=== PATIENT | female | born 1985 | race Caucasian/White ===

== ENCOUNTER 2016-11-01 07:13 | Emergency (ER) | payer OTHER ==
[2016-11-01 07:42] VITALS: BP 117/67
--- NOTE | 2016-11-01 07:50 | UC ---
Respiratory Complaint HPI - HPI Summary HPI Summary: cough and congestion for about two weeks. she has not had a fever. the cough is productive. no sob or wheezing. she has asthma and is a smoker and at times will need prednisone in the past. - History of Current Complaint Chief Complaint: UCRespiratory Stated Complaint: COUGH CONGESTION EARS Time Seen by Provider: 11/01/16 07:45 Hx Obtained From: Patient Hx Last Menstrual Period: 10/14/16 ?: No Onset/Duration: Gradual Onset Timing: Constant Severity Initially: Mild Severity Currently: Moderate Character: Cough: Productive Aggravating Factors: Deep Breaths Alleviating Factors: Nothing Associated Signs And Symptoms: Positive: URI, Nasal Congestion, Hoarseness. Negative: Dyspnea, Fever, Chills, Pleuritic Chest Pain, Wheezing, Hemoptysis, Dizziness, Calf Pain, Calf Swelling, Edema, Sinus Discomfort - Risk Factors Cardiac Risk Factors: Negative Pseudomonas Risk Factors: Negative Tuberculosis Risk Factors: Negative - Allergies/Home Medications Allergies/Adverse Reactions: Allergies Allergy/AdvReac Type Severity Reaction Status Date / Time Hydrocodone [From Vicodin] Allergy Hives, Verified 11/01/16 07:34 Vomiting Penicillins Allergy Hives, Verified 11/01/16 07:34 Vomiting PMH/Surg Hx/FS Hx/Imm Hx Respiratory History Of: Reports: Asthma - Surgical History Surgical History: Yes Surgery Procedure, Year, and Place: Tubal Ligation; C-Sections, 2005 2007 2015; Multiple Ear Tubes (Ying); T&A, 1991 - Family History Known Family History: Positive: None Negative: Diabetes - Social History Lives: With Family Alcohol Use: Weekly Substance Use Type: None Smoking Status (MU): Heavy Every Day Tobacco Smoker Type: Cigarettes Amount Used/How Often: 1/2 PPD Length of Time of Smoking/Using Tobacco: since age 20 Have You Smoked in the Last Year: Yes - Immunization History Most Recent Influenza Vaccination: June 2016 Review of Systems All Other Systems Reviewed And Are Negative: Yes Physical Exam Triage Information Reviewed: Yes Appearance: Well-Appearing, No Pain Distress, Obese Vital Signs: Initial Vital Signs Temp 98 F 11/01/16 07:39 Pulse 72 11/01/16 07:39 Resp 16 11/01/16 07:39 BP 117/67 11/01/16 07:39 Pulse Ox 98 11/01/16 07:39 Vital Signs Reviewed: Yes Eye Exam: Normal Eyes: Positive: Conjunctiva Clear. Negative: Conjunctiva Inflamed ENT Exam: Normal ENT: Positive: Normal ENT inspection, Hearing grossly normal, Pharynx normal, Nasal congestion. Negative: Pharyngeal erythema, Nasal drainage, TMs normal, TM bulging, TM dull, TM red, Tonsillar swelling, Tonsillar exudate, Trismus, Muffled/hoarse voice Neck exam: Normal Neck: Positive: Supple, Nontender, No Lymphadenopathy. Negative: Nuchal Rigidity, Tenderness @, Enlarged Nodes @ Respiratory Exam: Normal Respiratory: Positive: Lungs clear, Normal breath sounds. Negative: No respiratory distress, No accessory muscle use, Respiratory distress, Decreased breath sounds, Accessory muscle use, Crackles, Rhonchi, Stridor, Wheezing Cardiovascular: Positive: RRR, No Murmur, Pulses Normal Abdomen Description: Positive: Nontender, No Organomegaly, Soft Musculoskeletal Exam: Normal Musculoskeletal: Positive: Strength Intact, ROM Intact, No Edema Neurological Exam: Normal Neurological: Positive: Alert, Muscle Tone Normal. Negative: Fatigued, Lethargic, Unresponsive Psychological Exam: Normal Psychological: Positive: Normal Response To Family Skin Exam: Normal Skin: Negative: rashes UC Diagnostic Evaluation - Laboratory O2 Sat by Pulse Oximetry: 98 Respiratory Course/Dx - Course Course Of Treatment: Asthma and smoker with hx of bronchitis needing prednisone in the past. We will start z pack and tessalon perles and have prednisone on hand should she get tight and wheezing. she has bronchodilators on hand if needed. - Differential Dx/Diagnosis Differential Diagnosis/HQI/PQRI: Airway Obstruction, Foreign Body, Aspiration, Asthma, Bronchitis, Pulmonary Edema, Influenza, Lower Resp Infection Provider Diagnoses: acute bronchitis. Discharge - Discharge Plan Condition: Good Disposition: HOME Prescriptions: Azithromycin TAB* [Zithromax TAB (Z-DAISY) 250 mg #6 tabs] 2 tab PO .TODAY, THEN 1 DAILY #1 daisy Azithromyxin DAISY (NF) [Z-Daisy (Zithromax) 250 mg tabs #6] 2 tab PO .TODAY, THEN 1 DAILY #6 tab Methylprednisolone [Medrol Dosepak 4 MG*] 4 mg PO .SEE DAISY INSTRUCTION #21 tab Patient Education Materials: Acute Bronchitis (ED) Referrals: ADAM Freitas [Primary Care Provider] -
== END 2016-11-01 08:17 | disposition home or self-care (01) ==
LOC: UCCORT 07:13
DX: J20.9 Acute bronchitis, unspecified (principal); Z88.5 Allergy status to narcotic agent; Z88.0 Allergy status to penicillin; J45.909 Unspecified asthma, uncomplicated; F17.210 Nicotine dependence, cigarettes, uncomplicated; E66.9 Obesity, unspecified
CPT/HCPCS: 99212; G0463

== ENCOUNTER 2017-09-13 07:04 | Emergency (ER) | payer OTHER ==
[2017-09-13 07:32] VITALS: BP 113/69
--- NOTE | 2017-09-13 07:37 | UC ---
Complaint Female HPI - HPI Summary HPI Summary: urinary frequency x 3 days + dysuria , lower back pain , no fever, no chills, no flank pain - History Of Current Complaint Chief Complaint: UCGU Stated Complaint: URINARY COMPLAINT Time Seen by Provider: 09/13/17 07:21 Hx Obtained From: Patient Hx Last Menstrual Period: 09/02/17 Onset/Duration: Gradual Onset, Lasting Days - 3, Still Present Timing: Constant Severity Initially: Moderate Severity Currently: Moderate Pain Intensity: 3 Character: Burning Aggravating Factor(s): Urination Alleviating Factor(s): Nothing Associated Signs And Symptoms: Negative: Fever, Back Pain, Vaginal Bleeding/ Discharge, Vaginal Discharge, Nausea, Vomiting(# Of Episodes =), Genital Swelling, Genital Blisters, Retained Foregin Body (Specify) - Allergies/Home Medications Allergies/Adverse Reactions: Allergies Allergy/AdvReac Type Severity Reaction Status Date / Time acetaminophen [From Vicodin] Allergy Hives Verified 09/13/17 07:33 hydrocodone [From Vicodin] Allergy Hives Verified 09/13/17 07:33 Penicillins Allergy Hives Verified 09/13/17 07:33 Home Medications: Home Medications Bupropion XL* [Wellbutrin XL *] 150 mg PO DAILY 09/13/17 [History Confirmed ] Omeprazole CAP* [Prilosec CAP* 20 MG] 20 mg PO DAILY 09/13/17 [History Confirmed 09/13/17] PMH/Surg Hx/FS Hx/Imm Hx Respiratory History: Asthma Psychological History: Anxiety - Surgical History Surgical History: Yes Surgery Procedure, Year, and Place: Tubal Ligation; C-Sections, 2005 2007 2015; Multiple Ear Tubes (Ying); T&A, 1991 - Family History Known Family History: Positive: None Negative: Diabetes - Social History Alcohol Use: Occasionally Substance Use Type: None Smoking Status (MU): Heavy Every Day Tobacco Smoker Type: Cigarettes Amount Used/How Often: 1/2 PPD Length of Time of Smoking/Using Tobacco: since age 20 Have You Smoked in the Last Year: Yes - Immunization History Most Recent Influenza Vaccination: June 2016 Review of Systems Constitutional: Negative Skin: Negative Eyes: Negative ENT: Negative Respiratory: Negative Cardiovascular: Negative Gastrointestinal: Negative Genitourinary: Dysuria, Frequency Is Patient Immunocompromised?: No All Other Systems Reviewed And Are Negative: Yes Physical Exam Triage Information Reviewed: Yes Appearance: Well-Appearing, No Pain Distress, Well-Nourished Vital Signs: Initial Vital Signs Temp 98.4 F 09/13/17 07:25 Pulse 64 09/13/17 07:25 Resp 20 09/13/17 07:25 BP 113/69 09/13/17 07:25 Pulse Ox 96 09/13/17 07:25 Vital Signs Reviewed: Yes Eyes: Positive: Conjunctiva Clear ENT: Positive: Normal ENT inspection, Hearing grossly normal, Pharynx normal Neck: Positive: Supple, Nontender, No Lymphadenopathy Respiratory: Positive: Chest non-tender, Lungs clear, Normal breath sounds Cardiovascular: Positive: RRR, No Murmur, Pulses Normal Abdominal Exam: Normal Abdomen Description: Positive: Nontender, Soft. Negative: CVA Tenderness (R), CVA Tenderness (L), Distended, Guarding Bowel Sounds: Positive: Present Skin Exam: Normal Complaint Female Dx - Differential Dx/Diagnosis Provider Diagnoses: UTI Discharge - Discharge Plan Condition: Stable Disposition: HOME Prescriptions: Sulfamethox/Trimethoprim DS* [Bactrim DS 800/160 TAB*] 1 tab PO BID #14 tab Patient Education Materials: Urinary Tract Infection in Women (DC) Referrals: Emilee Mackey MD [Primary Care Provider] - If Needed
== END 2017-09-13 07:54 | disposition home or self-care (01) ==
LOC: UCCORT 07:04
DX: N39.0 Urinary tract infection, site not specified (principal)
CPT/HCPCS: 81003; 87086; 99212; G0463

== ENCOUNTER 2017-12-20 17:46 | Emergency (ER) | payer OTHER ==
[2017-12-20 18:29] VITALS: BP 119/82
[2017-12-20] MEDS ORDERED: Albuterol/Ipratropium NEB.SOL* Albuterol 2.5 MG/Ipratropium 0.5 MG 3 ML INH ONE (19:27)
--- NOTE | 2017-12-20 19:27 | UC ---
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 she has had worsening sinus pain, sore throat and bilateral ear pain for the past several days - History of Current Complaint Chief Complaint: UCRespiratory Stated Complaint: EARS/ST/SINUS Time Seen by Provider: 12/20/17 19:17 Hx Obtained From: Patient Hx Last Menstrual Period: 11/27/17 ?: No Onset/Duration: Gradual Onset, Lasting Weeks, Worse Since - past 3 days Pain Intensity: 6 Pain Scale Used: 0-10 Numeric Cough: Nonproductive Associated Signs & Symptoms: Positive: Sinus Discomfort, Nasal Discharge - Allergies/Home Medications Allergies/Adverse Reactions: Allergies Allergy/AdvReac Type Severity Reaction Status Date / Time acetaminophen [From Vicodin] Allergy Hives Verified 12/20/17 18:30 hydrocodone [From Vicodin] Allergy Hives Verified 12/20/17 18:30 Penicillins Allergy Hives Verified 12/20/17 18:30 Home Medications: Home Medications Albuterol HFA INHALER* [Ventolin HFA Inhaler*] 2 puff Q4HR PRN 12/20/17 [ History Confirmed 12/20/17] PMH/Surg Hx/FS Hx/Imm Hx Previously Healthy: No Respiratory History: Asthma GI/ History: Gastroesophageal Reflux Psychological History: Depression - Surgical History Surgical History: Yes Surgery Procedure, Year, and Place: Tubal Ligation; C-Sections, 2005 2007 2015; Multiple Ear Tubes (Ying); T&A, 1991 - Family History Known Family History: Positive: None Negative: Diabetes - Social History Occupation: Employed Full-time Lives: Alone Alcohol Use: Occasionally Substance Use Type: None Smoking Status (MU): Heavy Every Day Tobacco Smoker Type: Cigarettes Amount Used/How Often: 1/2 PPD Length of Time of Smoking/Using Tobacco: since age 20 Have You Smoked in the Last Year: Yes - Immunization History Most Recent Influenza Vaccination: June 2016 Review of Systems Constitutional: Negative Skin: Negative Eyes: Negative ENT: Sore Throat, Ear Ache, Nasal Discharge, Sinus Congestion, Sinus Pain/ Tenderness Respiratory: Negative Cardiovascular: Negative Gastrointestinal: Negative Genitourinary: Negative Motor: Negative Neurovascular: Negative Musculoskeletal: Negative Neurological: Headache Psychological: Negative Is Patient Immunocompromised?: No All Other Systems Reviewed And Are Negative: Yes Physical Exam Triage Information Reviewed: Yes Appearance: No Pain Distress, Well-Nourished, Ill-Appearing - mild Vital Signs: Initial Vital Signs Temp 97.6 F 12/20/17 18:24 Pulse 78 12/20/17 18:24 Resp 16 12/20/17 18:24 BP 119/82 12/20/17 18:24 Pulse Ox 100 12/20/17 18:24 Vital Signs Reviewed: Yes Eye Exam: Normal Eyes: Positive: Conjunctiva Clear ENT Exam: Normal ENT: Positive: Normal ENT inspection, Hearing grossly normal, Pharynx normal, Nasal congestion, TMs normal, Sinus tenderness, Uvula midline. Negative: Tonsillar swelling, Tonsillar exudate, Trismus, Muffled voice, Hoarse voice, Dental tenderness Dental Exam: Normal Neck exam: Normal Neck: Positive: Supple, Nontender, No Lymphadenopathy Respiratory Exam: Normal Respiratory: Positive: Chest non-tender, No respiratory distress, No accessory muscle use Cardiovascular Exam: Normal Cardiovascular: Positive: RRR, Pulses Normal, Brisk Capillary Refill Musculoskeletal Exam: Normal Musculoskeletal: Positive: Strength Intact, ROM Intact Neurological Exam: Normal Neurological: Positive: Alert, Muscle Tone Normal Psychological Exam: Normal Skin Exam: Normal Throat Pain/Nasal Course/Dx - Course Assessment/Plan: prednisone, zithromax, increase follow with pcp - Differential Dx/Diagnosis Provider Diagnoses: acute rhinosinusitis, nicotine dependent Discharge - Sign-Out/Discharge Documenting (check all that apply): Discharge/Admit/Transfer - Discharge Plan Condition: Stable Disposition: HOME Prescriptions: Azithromycin TAB* [Zithromax TAB (Z-DAISY) 250 mg #6 tabs] 2 tab PO .TODAY, THEN 1 DAILY #1 daisy predniSONE TAB* [Deltasone 20 MG TAB*] 40 mg PO DAILY 4 Days #8 tab Patient Education Materials: Albuterol (By breathing), Sinusitis (ED), How to Use Nasal Merna (ED) Forms: *Work Release Referrals: Emilee Mackey MD [Primary Care Provider] - If Needed - Billing Disposition and Condition Condition: STABLE Disposition: Home
[2017-12-20] MEDS ORDERED: predniSONE TAB* 20 MG PO ONE (20:04)
[2017-12-20] MEDS ORDERED: Ibuprofen TAB* 600 MG PO ONE (20:04)
[2017-12-20] MEDS ORDERED: Azithromycin TAB* 250 MG PO ONE (20:04)
== END 2017-12-20 20:18 | disposition home or self-care (01) ==
LOC: UCCORT 17:46
DX: J01.90 Acute sinusitis, unspecified (principal); H92.03 Otalgia, bilateral; J45.909 Unspecified asthma, uncomplicated; K21.9 Gastro-esophageal reflux disease without esophagitis; F32.9 Major depressive disorder, single episode, unspecified; Z88.6 Allergy status to analgesic agent; Z88.5 Allergy status to narcotic agent; Z88.0 Allergy status to penicillin; F17.210 Nicotine dependence, cigarettes, uncomplicated
CPT/HCPCS: 87651; 99212; A9270-GY; G0463; J7512

== ENCOUNTER 2018-01-16 15:14 | Emergency (ER) | payer OTHER ==
[2018-01-16 16:09] VITALS: BP 126/61
--- NOTE | 2018-01-16 16:22 | UC ---
Ear Complaint HPI - HPI Summary HPI Summary: 32 yo female with bilat PETs presents with decreased hearing left ear/otorrhea has had intermittent right ear tinnitus x 1 month pain is minimal - History of Current Complaint Chief Complaint: UCEar Stated Complaint: LT EAR COMP Time Seen by Provider: 01/16/18 16:15 Hx Obtained From: Patient Hx Last Menstrual Period: 12/28/17 Onset/Duration: Gradual Onset, Lasting Days Severity Initially: Mild Severity Currently: Mild Pain Intensity: 2 Pain Scale Used: 0-10 Numeric Associated Signs/Symptoms: Positive: Discharge, Hearing Loss Related History: Prior ENT Surgery - Allergies/Home Medications Allergies/Adverse Reactions: Allergies Allergy/AdvReac Type Severity Reaction Status Date / Time acetaminophen [From Vicodin] Allergy Hives Verified 01/16/18 16:09 hydrocodone [From Vicodin] Allergy Hives Verified 01/16/18 16:09 Penicillins Allergy Hives Verified 01/16/18 16:09 PMH/Surg Hx/FS Hx/Imm Hx Respiratory History: Asthma Psychological History: Anxiety - Surgical History Surgical History: Yes Surgery Procedure, Year, and Place: Tubal Ligation; C-Sections, 2005 2007 2015; Multiple Ear Tubes (Ying); T&A, 1991 - Family History Known Family History: Positive: None, Hypertension Negative: Diabetes - Social History Alcohol Use: Occasionally Substance Use Type: None Smoking Status (MU): Heavy Every Day Tobacco Smoker Type: Cigarettes Amount Used/How Often: 1/2 PPD Length of Time of Smoking/Using Tobacco: since age 20 Have You Smoked in the Last Year: Yes - Immunization History Most Recent Influenza Vaccination: June 2016 Review of Systems Constitutional: Negative Skin: Negative Eyes: Negative ENT: Ear Ache Respiratory: Negative Cardiovascular: Negative Gastrointestinal: Negative Genitourinary: Negative Motor: Negative Neurovascular: Negative Musculoskeletal: Negative Neurological: Negative Psychological: Negative Is Patient Immunocompromised?: No All Other Systems Reviewed And Are Negative: Yes Physical Exam Triage Information Reviewed: Yes Appearance: Well-Appearing, No Pain Distress, Well-Nourished Vital Signs: Initial Vital Signs Temp 98.1 F 01/16/18 16:05 Pulse 73 01/16/18 16:05 Resp 18 01/16/18 16:05 BP 126/61 01/16/18 16:05 Pulse Ox 100 01/16/18 16:05 Eyes: Positive: Conjunctiva Clear ENT: Positive: Other - right TM appears normal, PET is surrounded with wax, I can not tell if it is out Left PET draining purulence. Negative: Hearing grossly normal - decreased hearing left ear, Nasal congestion, Nasal drainage, TMs normal, Tonsillar swelling, Tonsillar exudate, Trismus, Muffled voice, Sinus tenderness, Uvula midline Neck: Positive: Supple, Nontender, No Lymphadenopathy Respiratory: Positive: Lungs clear, Normal breath sounds, No respiratory distress, No accessory muscle use Cardiovascular: Positive: RRR, No Murmur Musculoskeletal: Positive: ROM Intact, No Edema Neurological: Positive: Alert Psychological Exam: Normal Skin Exam: Normal Ear Complaint Course/Dx - Differential Dx/Diagnosis Provider Diagnoses: left suppruative otitis media with PET Discharge - Sign-Out/Discharge Documenting (check all that apply): Discharge/Admit/Transfer - Discharge Plan Condition: Stable Disposition: HOME Referrals: Emilee Mackey MD [Primary Care Provider] - - Billing Disposition and Condition Condition: STABLE Disposition: Home
== END 2018-01-16 16:31 | disposition home or self-care (01) ==
LOC: UCCORT 15:14
DX: H66.42 Suppurative otitis media, unspecified, left ear (principal); H69.02 Patulous Eustachian tube, left ear; Z88.6 Allergy status to analgesic agent; Z88.5 Allergy status to narcotic agent; Z88.0 Allergy status to penicillin; F17.210 Nicotine dependence, cigarettes, uncomplicated
CPT/HCPCS: 99212; G0463

== ENCOUNTER 2018-04-16 14:41 | Emergency (ER) | payer OTHER ==
--- OUTSIDE RECORDS SUMMARY | 2018-04-16 15:21 | XMS REPORT | Continuity of Care Document ---
:1985 External Reference #:[id number] Author Name Pamela Saxena Care Team Providers Name Role Phone Yolanda Walker PA-C Care Team Information Employment Consultant Unavailable Yolanda Walker PA-C Primary Care Physician Unavailable Payers Type Date Identification Numbers Payment Provider Subscriber Policy Number: [id number] [facility] Demetria Joel PayID: [id number] [address] [place] [address] Advance Directives Description No Information Available Problems Date Description Provider Status Onset: 08/23/2011 Chronic otitis media Nelson Ying M.D. Active Onset: 08/23/2011 Dysfunction of eustachian tube Nelson Ying M.D. Active Onset: 12/06/2016 Other specified disorders of Eustachian Nelson Ying M.D. 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 Tobacco Use Start: Unknown currently smokes 1/2 Pack Daily ETOH Use Rarely consumes alcohol Recreational Drug Use Never Used Drugs Allergies, Adverse Reactions, Alerts Date Description Reaction Status Severity Comments 08/23/2011 Penicillin GI Upset Active 08/23/2011 Vicodin GI Upset Active Medications Medication Date Status Form Strength Qnty SIG Indications Ordering Provider Levothyroxine 02/02/ Active Tablets 50mcg 60tab 1 by mouth Juana Ying 2017 s every day Rani Damon Cetirizine HCL / Active Chewtabs 10mg 30uni 1 po qd Unknown 0000 ts Symbicort / Active Aerosol 80-4.5mcg/ 1unit 2 puff Unknown 0000 Act s twice a day Montelukast / Active Tablets 10mg 90tab 1 by mouth Unknown Sodium 0000 s every day Ventolin HFA / Active Aerosol 108(90Base 2 puffs Unknown 0000 ) mcg/Act every 4 hours as needed Percocet 01/02/ Hx Tablets 5-325mg 20tab 1-2 by Stepan, 2016 - s mouth four Nelson, 01/11/ times a M.D. 2017 day as needed for pain Cephalexin 04/01/ Hx Capsules 500mg 20cap 1 by mouth Stepan, 2015 - s twice a [facility], 05/13/ day for 10 M.D. 2014 days Ciprodex 03/18/ Hx Suspension 0.3-0.1% 1unit 3-4 gtts Stepan, 2014 - s bid in [facility], 05/13/ affected M.D. 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 2013 Ciprodex 04/03/ Hx Suspension 0.3-0.1% 7.5ml 3-4 gtts Stepan, 2011 - bid in [facility], 08/14/ affected M.D. 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 2013 rinse mouth after use Proair HFA 00// Hx Aerosol 108(90Base 1unit 2puffs Unknown 0000 - ) mcg/ac s every 4 05/09/ hrs as 2017 needed Azithromycin // Hx Tablets 500mg 10tab 1 po qd Unknown 0000 - s 2011 Ofloxacin / Hx Solution 0.3% 1bott 2-3 gtts Unknown 0000 - le bid in 08/14/ right ear 2013 for 1 week Prednisone 00/00/ Hx Tablets 15tab 1 by mouth Unknown 0000 - s every day 2014 Ciprofloxacin 00/00/ Hx Tablets 14tab 1 tab Unknown HCL 0000 - s twice 09/30/ daily for 2014 7 days Immunizations Description No Information Available Vital Signs Date Vital Result Comment 03/26/2018 2:14pm Weight 244.00 lb Height 71 inches 5'11" BMI (Body Mass Index) 34.0 kg/m2 BP Systolic 122 mmHg BP Diastolic 64 mmHg Heart Rate 79 /min O2 % BldC Oximetry 96 % Body Temperature 98.5 F Pain Level 0 08/16/2017 10:16am Weight 257.00 lb Height 71 inches 5'11" BMI (Body Mass Index) 35.8 kg/m2 BP Systolic 125 mmHg BP Diastolic 83 mmHg Heart Rate 74 /min O2 % BldC Oximetry 96 % Body Temperature 96.9 F Pain Level 4 03/20/2017 10:59am Weight 241.00 lb Height 71 inches 5'11" BMI (Body Mass Index) 33.6 kg/m2 BP Systolic 112 mmHg BP Diastolic 74 mmHg Heart Rate 82 /min O2 % BldC Oximetry 99 % Body Temperature 97.1 F 02/02/2017 8:43am Weight 241.00 lb Height 71 inches 5'11" BMI (Body Mass Index) 33.6 kg/m2 BP Systolic 116 mmHg BP Diastolic 78 mmHg Heart Rate 82 /min O2 % BldC Oximetry 99 % Body Temperature 97.6 F 01/12/2017 9:06am Weight 241.00 lb Height 71 inches 5'11" BMI (Body Mass Index) 33.6 kg/m2 BP Systolic 119 mmHg BP Diastolic 70 mmHg Heart Rate 75 /min O2 % BldC Oximetry 97 % Body Temperature 97.7 F Pain Level 0 12/06/2016 2:10pm Weight 240.00 lb Height 71 inches 5'11" BMI (Body Mass Index) 33.5 kg/m2 BP Systolic 121 mmHg BP Diastolic 74 mmHg Heart Rate 75 /min O2 % BldC Oximetry 97 % Body Temperature 98.5 F 03/18/2015 10:23am Weight 215.00 lb Height 71 inches 5'11" BMI (Body Mass Index) 30.0 kg/m2 BP Systolic 114 mmHg BP Diastolic 74 mmHg Heart Rate 65 /min O2 % BldC Oximetry 98 % Body Temperature 98.2 F Pain Level 5 08/06/2014 10:43am Weight 228.38 lb Height 71 inches 5'11" BMI (Body Mass Index) 31.8 kg/m2 BP Systolic 118 mmHg BP Diastolic 80 mmHg Body Temperature 97.0 F 11/27/2013 1:36pm Weight 223.00 lb Height 71 inches 5'11" BMI (Body Mass Index) 31.1 kg/m2 BP Systolic 104 mmHg BP Diastolic 70 mmHg Body Temperature 97.8 F 07/21/2013 11:34am Weight 222.00 lb Height 71 inches 5'11" BMI (Body Mass Index) 31.0 kg/m2 BP Systolic 120 mmHg BP Diastolic 84 mmHg Heart Rate 57 /min O2 % BldC Oximetry 98 % Body Temperature 98.5 F 02/05/2013 1:06pm Weight 216.00 lb Height 71 inches 5'11" BMI (Body Mass Index) 30.1 kg/m2 BP Systolic 110 mmHg BP Diastolic 70 mmHg Body Temperature 97.5 F 08/14/2012 3:36pm Weight 208.00 lb Height 71 inches 5'11" BMI (Body Mass Index) 29.0 kg/m2 BP Systolic 124 mmHg BP Diastolic 70 mmHg Heart Rate 70 /min O2 % BldC Oximetry 100 % Body Temperature 97.9 F 04/03/2012 9:56am Weight 226.00 lb Height 71 inches 5'11" BMI (Body Mass Index) 31.5 kg/m2 BP Systolic 120 mmHg BP Diastolic 80 mmHg Heart Rate 73 /min O2 % BldC Oximetry 96 % Body Temperature 97.5 F 10/02/2011 9:38am Body Temperature 98.5 F 08/23/2011 10:50am Weight 217.00 lb Height 71 inches 5'11" BMI (Body Mass Index) 30.3 kg/m2 BP Systolic 124 mmHg BP Diastolic 84 mmHg Heart Rate 78 /min O2 % BldC Oximetry 98 % Body Temperature 98.6 F Results Test Date Facility Test Result H/L Range Note Laboratory test [facility] Cytology Non-Professional Housing Consultant SEE RESULT 1, 2 finding [address] [place] [address] Laboratory test Replaced By [facility] Urine HCG NEGATIVE Negative 3 finding [address] (Qualitative) [place] [address] [phone] Laboratory test [facility] Urine HCG NEGATIVE Negative 4 finding [address] [facility] (Qualitative) [place] [address] [phone] Laboratory test [facility] HCG Serum, NEGATIVE finding [address] [place] [place] [address] [phone] CBC [facility] White Blood 4.7 K/uL 3.1-10.[address] [place] [address] [phone] Red Blood Count 5.19 M/uL 3.90-5.40 Hemoglobin 15.1 gm/dL 11.6-15.8 Hematocrit 45.3 % 36.0-46.1 Mean Cell Volume 87.3 fl 80.9-99.0 Mean Corpuscular HGB 29.1 pg 25.9-32.7 Mean Corpuscular HGB Conc 33.3 g/dL 30.8-34.3 Platelet Count 217 K/uL 155-360 Red Cell Distri Width %CV 13.2 % 11.7-14.4 Mean Platelet Volume 11.4 fL 8.9-12.4 Urine Screen 09/15/2011 [facility] Urine Color YELLOW Yellow [address] [place] [address] [phone] Urine Clarity CLEAR Clear Urine Glucose - Dipstick NEGATIVE mg/dL Negative Urine Bilirubin - Dipstick NEGATIVE Negative Urine Ketone NEGATIVE mg/dL Negative Urine Specific Roy 1.025 1.010-1.030 Urine Blood NEGATIVE Negative Urine PH 6.0 Low 6.5-7.5 Urine Protein - Dipstick NEGATIVE mg/dL Negative Urine Urobilinogen - Dipstick 0.2 E.U./dL 0.2-1.0 Urine Nitrite - Dipstick NEGATIVE Negative Urine Leuk Esterase NEGATIVE Negative 1 [id number] 2 SEE RESULT BELOW Name: DEMETRIA JOEL : [address]: Nelson Ying MD Acct: [id number] Unit: [id number] AGE: 31 Location: [facility] Re01/23/17 SEX: F Status: REG REF SPEC: [id number] JAIM: 01/23/17-[address]: Nelson Ying MD REQ: [id number] RECD: 01/24/17-1338 STATUS: SOUT _ ORDERED: FNA INTERP RPT COMMENTS: [id number] FINAL DIAGNOSIS Thyroid, left, fine needle aspiration: --Benign thyroid nodule- colloid/hyperplastic type ([place] Class II). The specimen demonstrates abundant watery colloid, a modest amount of benign appearing follicular epithelium arranged in uniform sheets, medium sized follicles and only occasional small groups. No features of papillary carcinoma are seen. In this clinical setting the risk of malignancy is less than 3%. Clinical management of this thyroid nodule should be based on clinical and radiographic features as well as the above. THYROID LEFT - LEFT THYROID FINE NEEDLE ASPIRATION CLINICAL HISTORY Left thyroid nodule. IMMEDIATE INTERPRETATION Destained/restained. CONTINUED ON NEXT PAGE * ML=Testing performed at Main Lab DEPARTMENT OF PATHOLOGY, [address] [place] [address] Avtar Calhoun M.D. Director [facility] # [id number] RUN DATE: 01/25/17 [facility] LAB LIVE PAGE 2 Patient: DEMETRIA JOEL [id number] (Continued) GROSS DESCRIPTION (Continued) GROSS DESCRIPTION 1 Alcohol fixed slide(s) received from clinician, 5 Air dried slide(s)(4 stained,1 unstained) and Needle rinse in CytoLyt solution for thin layer non-release and technical records clerk test.( clear) Signed (signature on file) Avtar Calhoun MD 1408 END OF REPORT * ML=Testing performed at Main Lab DEPARTMENT OF PATHOLOGY, [address] [place] [address] Avtar Calhoun M.D. Director [facility] # [id number] 3 FIRST MORNING SPECIMENS GENERALLY CONTAIN THE HIGHEST CONCENTRATION OF HCG AND ARE RECOMMENDED FOR EARLY DETECTION OF . 4 FIRST MORNING SPECIMENS GENERALLY CONTAIN THE HIGHEST CONCENTRATION OF HCG AND ARE RECOMMENDED FOR EARLY DETECTION OF . Procedures Date Code Description Status 03/20/2017 03709 Fiberoptic Laryngoscopy,Diag. Completed 01/23/2017 91450 Ultrasonic Guide Needle Biopsy Completed 01/23/2017 84203 Fna W/Image Completed 01/12/2017 04569 Ultrasound Head/Neck Completed 01/01/2017 74031 Tympanostomy, Gen. Anesth. Completed 01/01/2017 98660 Anesthesia, Tympanotomy Completed 10/08/2014 23414 Tympanostomy, Gen. Anesth. Completed 11/27/2013 61894 Remove Impacted Cerumen Completed 11/27/2013 83703 Tympanometry Completed 07/21/2013 95062 Tympanometry Completed 07/21/2013 36139 Audiometry, Comprehensive Completed 05/22/2013 18914 Tympanostomy, Gen. Anesth. Completed 08/14/2012 70757 Tympanometry Completed 08/14/2012 66614 Audiometry, Comprehensive Completed 09/21/2011 51648 Tympanostomy, Gen. Anesth. Completed 09/21/2011 80871 Tympanostomy, Gen. Anesth. Completed 08/23/2011 26169 Tympanometry Completed Encounters Type Date Location Provider Dx Diagnosis Office Visit 08/16/2017 Main Office Nelson Ying M.D. Z96.22 Myringotomy tube(s) 10:30a status E03.9 Hypothyroidism, unspecified E66.9 Obesity, unspecified Office Visit 03/20/2017 10:45a Main Office Nelson Ying, K21.9 Gastro- esophageal reflux M.D. 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 disorders of Eustachian tube, bilateral Office Visit 03/18/2015 10:15a Main Office Judy Collins 381.10 Otitis Media Simple Willson, MANAGER STORE Or Unspec Chronic 381.81 Eustachian Tube Dysfunction Office Visit 08/06/2014 10:00a Main Office Nelson Ying M.D. 380.4 Cerumen Removal 381.10 Otitis Media Simple Or Unspec Chronic 381.81 Eustachian Tube Dysfunction 461.8 Sinusitis Acute Other Office Visit 07/21/2013 11:30a Main Office Rosita 381.81 Eustachian Tube CAROLINE Smith Dysfunction Office Visit 02/05/2013 1:15p Main Office Rosita 381.81 Eustachian Tube CAROLINE Smith Dysfunction 380.4 Cerumen Removal Office Visit 08/14/2012 3:15p Main Office Sarah Becker, 388.70 Otalgia & PA Earache Unspec 381.81 Eustachian Tube Dysfunction Office Visit 04/03/2012 10:00a Main Office Sarah Becker, 381.10 Otitis Media PA Simple Or Unspec Chronic Office Visit 08/23/2011 10:30a Main Office Nelson Ying M.D. 381.10 Otitis Media Simple Or Unspec Chronic 381.81 Eustachian Tube Dysfunction Plan of Treatment No Information Available
[2018-04-16 15:30] VITALS: BP 125/55
--- NOTE | 2018-04-16 15:52 | UC ---
Throat Pain/Nasal Rigoberto HPI - HPI Summary HPI Summary: 32 yo female presents with cough and sinus pain/pressure/congestion for the last 10 days. She tells me that her symptoms began about 10 days ago with sinus symptoms and have progressed to chest congestion with an intermittently productive cough. She has not been taking anything OTC. Denies fever, chills, sore throat, abdominal pain, n/v. She is still smoking daily - History of Current Complaint Chief Complaint: UCRespiratory Stated Complaint: SINUSES,COUGH Time Seen by Provider: 04/16/18 15:52 Hx Obtained From: Patient Hx Last Menstrual Period: 04/16/18 Onset/Duration: Gradual Onset Pain Intensity: 0 - Allergies/Home Medications Allergies/Adverse Reactions: Allergies Allergy/AdvReac Type Severity Reaction Status Date / Time acetaminophen [From Vicodin] Allergy Hives Verified 04/16/18 15:30 hydrocodone [From Vicodin] Allergy Hives Verified 04/16/18 15:30 Penicillins Allergy Hives Verified 04/16/18 15:30 Home Medications: Home Medications Loratadine [Claritin] 10 mg PO DAILY 04/16/18 [History Confirmed 04/16/18] hydrOXYzine HCL TAB* [Atarax TAB 50 MG *] 50 mg PO BEDTIME PRN 04/16/18 [ History Confirmed 04/16/18] PMH/Surg Hx/FS Hx/Imm Hx Respiratory History: Asthma GI/ History: Gastroesophageal Reflux - Surgical History Surgical History: Yes Surgery Procedure, Year, and Place: Tubal Ligation; C-Sections, 2005 2007 2015; Multiple Ear Tubes (Ying); T&A, 1991 - Family History Known Family History: Positive: None, Hypertension Negative: Diabetes - Social History Occupation: Employed Full-time Lives: With Family Alcohol Use: Occasionally Substance Use Type: None Smoking Status (MU): Heavy Every Day Tobacco Smoker Type: Cigarettes Amount Used/How Often: 1/2 PPD Length of Time of Smoking/Using Tobacco: since age 20 Have You Smoked in the Last Year: Yes - Immunization History Most Recent Influenza Vaccination: June 2016 Review of Systems Constitutional: Negative Skin: Negative Eyes: Negative ENT: Nasal Discharge, Sinus Congestion, Sinus Pain/Tenderness Respiratory: Cough Cardiovascular: Negative Gastrointestinal: Negative Neurovascular: Negative Neurological: Negative Psychological: Negative All Other Systems Reviewed And Are Negative: Yes Physical Exam - Summary Physical Exam Summary: GENERAL: NAD. WDWN. No pain distress. SKIN: No rashes, sores, lesions, or open wounds. HEENT: Head: AT/NC Eyes: Conjunctiva clear without inflammation or discharge. Ears: Hearing grossly normal. TMs intact, no bulging, erythema, or edema. Nose: Nasal mucosa pink and moist. NTTP maxillary and frontal sinus. Throat: Posterior oropharynx without exudates, erythema, or tonsillar enlargement. Uvula midline. NECK: Supple. Nontender. No lymphadenopathy. CHEST: Mild wheezing throughout. No r/r. No accessory muscle use. Breathing comfortably and in no distress. CV: RRR. Without m/r/g. Pulses intact. Cap refill <2seconds NEURO: Alert. PSYCH: Age appropriate behavior. Triage Information Reviewed: Yes Vital Signs: Initial Vital Signs Temp 98.2 F 04/16/18 15:25 Pulse 71 04/16/18 15:25 Resp 18 04/16/18 15:25 BP 125/55 04/16/18 15:25 Pulse Ox 98 04/16/18 15:25 Vital Signs Reviewed: Yes Throat Pain/Nasal Course/Dx - Course Course Of Treatment: sinusitis. Bronchitis - Differential Dx/Diagnosis Provider Diagnoses: Sinusitis. Bronchitis Discharge - Sign-Out/Discharge Documenting (check all that apply): Patient Departure All imaging exams completed and their final reports reviewed: No Studies - Discharge Plan Condition: Stable Disposition: HOME Prescriptions: Azithromycin TAB* [Zithromax TAB (Z-DAISY) 250 mg #6 tabs] 2 tab PO .TODAY, THEN 1 DAILY #1 daisy predniSONE TAB* [Deltasone 20 MG TAB*] 40 mg PO DAILY #9 tab Patient Education Materials: Sinusitis (ED), Acute Bronchitis (ED) Referrals: Emilee Mackey MD [Primary Care Provider] - Additional Instructions: If you develop a fever, shortness of breath, chest pain, new or worsening symptoms - please call your PCP or go to the ED. - Billing Disposition and Condition Condition: STABLE Disposition: Home
== END 2018-04-16 16:11 | disposition home or self-care (01) ==
LOC: UCCORT 14:41
DX: J32.9 Chronic sinusitis, unspecified (principal); J40 Bronchitis, not specified as acute or chronic; J45.909 Unspecified asthma, uncomplicated; F17.210 Nicotine dependence, cigarettes, uncomplicated; Z88.6 Allergy status to analgesic agent; Z88.5 Allergy status to narcotic agent; Z88.0 Allergy status to penicillin
CPT/HCPCS: 99212; G0463

== ENCOUNTER 2018-05-03 07:52 | Emergency (ER) | payer OTHER ==
[2018-05-03 08:04] VITALS: BP 134/74
--- NOTE | 2018-05-03 08:10 | UC ---
FLU HPI - HPI Summary HPI Summary: 32-year-old female smoker presents with 1 month of cough, congestion, runny nose. She states that she was treated 2-1/2 weeks ago with antibiotic and prednisone with some improvement. She quickly returned to illness. 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 She has nobody in her home was been sick. She has cut back on her smoking since being ill. She does have tubes in her ears as she typically gets this sort of thing twice per year. She reports fever to 100.5 last night. - History of Current Complaint Chief Complaint: UCRespiratory Stated Complaint: COUGH/CONGESTION Time Seen by Provider: 05/03/18 07:54 Hx Obtained From: Patient Hx Last Menstrual Period: 04/16/18 Pain Intensity: 0 - Allergy/Home Medications Allergies/Adverse Reactions: Allergies Allergy/AdvReac Type Severity Reaction Status Date / Time acetaminophen [From Vicodin] Allergy Hives Verified 05/03/18 08:00 hydrocodone [From Vicodin] Allergy Hives Verified 05/03/18 08:00 Penicillins Allergy Hives Verified 05/03/18 08:00 Home Medications: Home Medications Albuterol 0.5% CONC NEB.JUAQUIN* 1 mg .SEE ORDER Q6H PRN 05/03/18 [History Confirmed 05/03/18] PMH/Surg Hx/FS Hx/Imm Hx - Additional Past Medical History Additional PMH: Twice per year upper respiratory infection - Surgical History Surgical History: Yes Surgery Procedure, Year, and Place: Tubal Ligation; C-Sections, 2005 2007 2015; Multiple Ear Tubes (Ying); T&A, 1991 - Family History Known Family History: Positive: None, Hypertension Negative: Diabetes - Social History Occupation: Employed Full-time - 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 as a home 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 Alcohol Use: Occasionally Substance Use Type: None Smoking Status (MU): Heavy Every Day Tobacco Smoker Type: Cigarettes Amount Used/How Often: 1/2 PPD Length of Time of Smoking/Using Tobacco: since age 20 Have You Smoked in the Last Year: Yes - Immunization History Most Recent Influenza Vaccination: June 2016 Review of Systems Constitutional: Fever Skin: Negative ENT: Sore Throat, Nasal Discharge, Sinus Congestion Respiratory: Shortness Of Breath, Cough Cardiovascular: Negative Gastrointestinal: Negative Motor: Negative All Other Systems Reviewed And Are Negative: Yes Physical Exam Triage Information Reviewed: Yes Appearance: Well-Appearing, No Pain Distress Vital Signs: Initial Vital Signs Temp 97.6 F 05/03/18 07:58 Pulse 81 05/03/18 07:58 Resp 18 05/03/18 07:58 BP 134/74 05/03/18 07:58 Pulse Ox 99 05/03/18 07:58 Vital Signs Reviewed: Yes Eyes: Positive: Conjunctiva Clear ENT: Positive: Hearing grossly normal, Pharynx normal, Other - Bilateral tympanostomy tube. Negative: Nasal drainage, TM red, Hoarse voice Neck: Positive: Supple, Nontender, No Lymphadenopathy Respiratory Exam: Normal Respiratory: Positive: Chest non-tender, Lungs clear Cardiovascular: Positive: RRR Musculoskeletal Exam: Normal Neurological Exam: Normal Skin Exam: Normal Diagnostics - Radiology cxr Xray Interpretation: Positive (See Comments) - linear atelectasis DELFINO, no infiltrate Radiology Interpretation Completed By: Radiologist Flu Course/Dx - Course Course Of Treatment: Patient with history of chronic, recurrent bronchitis who has now had a cough and wheezing over the course of one month. She has nebulizer, albuterol at home. I will place her on a Medrol Dosepak and add Levaquin given the possibility of COPD exacerbation in this heavy smoker. - Differential Dx/Diagnosis Provider Diagnoses: COPD exacerbation. Chronic bronchitis Discharge - Sign-Out/Discharge Documenting (check all that apply): Patient Departure All imaging exams completed and their final reports reviewed: Yes - Discharge Plan Condition: Improved Disposition: HOME Prescriptions: Levofloxacin TAB* [Levaquin TAB*] 750 mg PO DAILY #5 tab methylPREDNISolone [Medrol] 4 mg PO DAILY #1 tab.ds.pk Patient Education Materials: Chronic Bronchitis (ED) Referrals: Emilee Mackey MD [Primary Care Provider] - Additional Instructions: \Quit smoking. Humidifier while sleeping. Use inhaler 3 times daily. Stay well-hydrated. Call your doctor today to schedule prompt follow-up. Return with fever, difficulty breathing, worse or other concerns. - Billing Disposition and Condition Condition: IMPROVED Disposition: Home - Attestation Statements Document Initiated by Walter: Diana
--- NOTE | 2018-05-03 08:37 | RAD ---
HISTORY: COUGH X 1MO COMPARISONS: June 16, 2010 VIEWS: 4: Frontal dual-energy and lateral views of the chest. FINDINGS: CARDIOMEDIASTINAL SILHOUETTE: The cardiomediastinal silhouette is normal. TESSA: The tessa are normal. PLEURA: The costophrenic angles are sharp. No pleural abnormalities are noted. LUNG PARENCHYMA: There is linear opacification of the left upper lobe. ABDOMEN: The upper abdomen is clear. There is no subphrenic gas. BONES AND SOFT TISSUES: No bone or soft tissue abnormalities are noted. OTHER: None. IMPRESSION: LINEAR ATELECTASIS OF THE LEFT UPPER LOBE.
== END 2018-05-03 09:02 | disposition home or self-care (01) ==
LOC: UCCORT 07:52
DX: J44.1 Chronic obstructive pulmonary disease with (acute) exacerbation (principal); F17.210 Nicotine dependence, cigarettes, uncomplicated; Z88.0 Allergy status to penicillin; Z88.6 Allergy status to analgesic agent
CPT/HCPCS: 71046; 99212; G0463

== ENCOUNTER 2019-09-24 08:49 | Emergency (ER) | payer OTHER ==
[2019-09-24 08:59] VITALS: BP 106/70
--- NOTE | 2019-09-24 09:16 | UC ---
Throat Pain/Nasal Rigoberto HPI - HPI Summary HPI Summary: 33-year-old woman comes in with chief complaint of 3 days of upper respiratory tract infection symptoms. She does have rhinorrhea which is yellow and green and also cough chest congestion exacerbation or asthma and yellow and green sputum. Mild body aches mild sore throat today. Yesterday or sore throat was worse. Her albuterol is helping with her breathing. - History of Current Complaint Chief Complaint: UCGeneralIllness Stated Complaint: FLU SYMPTOMS Time Seen by Provider: 09/24/19 09:03 Hx Last Menstrual Period: 04/16/18 Pain Intensity: 0 - Allergies/Home Medications Allergies/Adverse Reactions: Allergies Allergy/AdvReac Type Severity Reaction Status Date / Time acetaminophen [From Vicodin] Allergy Hives Verified 09/24/19 08:57 hydrocodone [From Vicodin] Allergy Hives Verified 09/24/19 08:57 Penicillins AdvReac Hives Verified 09/24/19 08:57 Home Medications: Home Medications Cetirizine* [ZyrTEC 10 MG TAB*] 10 mg PO DAILY 07/29/16 [History Confirmed 09/24] Omeprazole CAP (NF) [Prilosec CAP* 20 MG] 15 mg PO DAILY 09/13/17 [History Confirmed 09/24/19] Albuterol HFA INHALER* [Ventolin HFA Inhaler*] 2 puff Q4HR PRN 12/20/17 [ History Confirmed 09/24/19] Loratadine [Claritin 10 MG CAP] 10 mg PO DAILY 04/16/18 [History Confirmed 09/24] hydrOXYzine HCL TAB* [Atarax TAB 50 MG *] 50 mg PO BEDTIME PRN 04/16/18 [ History Confirmed 09/24/19] Albuterol 0.5% CONC NEB.JUAQUIN* 1 mg .SEE ORDER Q6H PRN 05/03/18 [History Confirmed 09/24/19] Azithromyxin MARVIN (NF) [Z-Marvin (Zithromax) 250 mg tabs #6] 2 tab PO .TODAY, THEN 1 DAILY #6 tab 09/24/19 [Rx] Ondansetron TAB* [Zofran 4 MG Tab*] 8 mg PO Q6H PRN 09/24/19 [History Confirmed 09/24/19] Sertraline* [Zoloft*] 100 mg PO DAILY 09/24/19 [History Confirmed 09/24/19] Varenicline Tartrate [Chantix] 1 tab PO BID 09/24/19 [History Confirmed 09/24/19 ] PMH/Surg Hx/FS Hx/Imm Hx Previously Healthy: Yes - Surgical History Surgical History: Yes Surgery Procedure, Year, and Place: Tubal Ligation; C-Sections, 2005 2007 2015; Multiple Ear Tubes (Y[facility]); T&A, 1991 - Family History Known Family History: Positive: None, Hypertension Negative: Diabetes - Social History Alcohol Use: Occasionally Substance Use Type: None Smoking Status (MU): Heavy Every Day Tobacco Smoker Type: Cigarettes Amount Used/How Often: 1/2 PPD Length of Time of Smoking/Using Tobacco: since age 20 Have You Smoked in the Last Year: Yes - Immunization History Most Recent Influenza Vaccination: June 2016 Review of Systems All Other Systems Reviewed And Are Negative: Yes Constitutional: Positive: Other - SEE HPI Skin: Positive: Negative Eyes: Positive: Negative ENT: Positive: Sore Throat, Nasal Discharge, Sinus Congestion Respiratory: Positive: Cough, Other - SEE HPI Cardiovascular: Positive: Negative Gastrointestinal: Positive: Negative Motor: Positive: Negative Neurovascular: Positive: Negative Musculoskeletal: Positive: Myalgia Neurological/Mental Status: Positive: Headache Psychological: Positive: Negative Is Patient Immunocompromised?: No Physical Exam Triage Information Reviewed: Yes Appearance: No Pain Distress, Well-Nourished, Ill-Appearing - MILD Vital Signs: Initial Vital Signs Temp 97.8 F 09/24/19 08:57 Pulse 70 09/24/19 08:57 Resp 16 09/24/19 08:57 BP 106/70 09/24/19 08:57 Pulse Ox 99 09/24/19 08:57 Vital Signs Reviewed: Yes Eye Exam: Normal Eyes: Positive: Conjunctiva Clear ENT: Positive: Pharyngeal erythema, Nasal congestion, Nasal drainage, TMs normal Neck: Positive: Supple Respiratory: Positive: No respiratory distress, Rhonchi Cardiovascular: Positive: RRR Musculoskeletal: Positive: Strength Intact, ROM Intact Neurological: Positive: Alert, Muscle Tone Normal Psychological: Positive: Normal Response To Family, Age Appropriate Behavior Skin Exam: Normal Throat Pain/Nasal Course/Dx - Course Course Of Treatment: DISCUSSED VIRAL VERSES BACTERIAL INFECTIONS AND THE ROLE OF ANTIBIOTICS. THE PATIENT PREFERS TO BE ON ANTIBIOTICS AT THIS TIME. - Differential Dx/Diagnosis Provider Diagnosis: Bronchitis, Asthma Discharge ED - Sign-Out/Discharge Documenting (check all that apply): Patient Departure All imaging exams completed and their final reports reviewed: No Studies - Discharge Plan Condition: Stable Disposition: HOME Prescriptions: Azithromyxin MARVIN (NF) [Z-Marvin (Zithromax) 250 mg tabs #6] 2 tab PO .TODAY, THEN 1 DAILY #6 tab Patient Education Materials: Asthma (ED), Acute Bronchitis (ED) Forms: *Work Release Referrals: Job Chavez MD [Primary Care Provider] - Additional Instructions: FOLLOW UP WITH YOUR DOCTOR IF NOT COMPLETELY IMPROVED. GET REEVALUATED SOONER IF NOT IMPROVED OR WORSE OR ANY QUESTIONS OR CONCERNS. - Billing Disposition and Condition Condition: STABLE Disposition: Home
[2019-09-24 09:19] LABS: Influenza A Molecular Negative (Negative); Influenza B Molecular Negative (Negative)
== END 2019-09-24 09:31 | disposition home or self-care (01) ==
LOC: UCCORT 08:49
DX: J45.909 Unspecified asthma, uncomplicated (principal); F17.210 Nicotine dependence, cigarettes, uncomplicated; R51 Headache; R09.89 Other specified symptoms and signs involving the circulatory and respiratory systems; R09.81 Nasal congestion; Z88.0 Allergy status to penicillin; Z88.6 Allergy status to analgesic agent; Z88.5 Allergy status to narcotic agent
CPT/HCPCS: 99211; G0463